=== PATIENT | female | born 1985 | race African-American/Black ===

== ENCOUNTER 2019-12-31 21:38 | Emergency (ER) | payer SELFPAY ==
[2019-12-31] MEDS ORDERED: SODIUM CHLORIDE 0.9% (FLUSH) 10 ML SYG IV PRN (21:50)
[2019-12-31] MEDS ORDERED: KETOROLAC TROMETHAMINE INJ 30 MG/ML VIAL IV ONE (21:53)
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
[2020-01-01] MEDS ORDERED: POTASSIUM CHLORIDE 20 MEQ TAB PO ONE (02:36)
[2020-01-01 03:34] VITALS: BP 118/68; TEMP 98.1; O2SAT 99
== END 2020-01-01 03:10 ==
LOC: ER 21:38
DX: S20.212A Contusion of left front wall of thorax, initial encounter (principal); S40.012A Contusion of left shoulder, initial encounter; F15.90 Other stimulant use, unspecified, uncomplicated; F12.90 Cannabis use, unspecified, uncomplicated; M54.2 Cervicalgia; R51 Headache; R10.12 Left upper quadrant pain; M25.551 Pain in right hip; M79.651 Pain in right thigh; M79.652 Pain in left thigh; V49.88XA Car occupant (driver) (passenger) injured in other specified transport accidents, initial encounter; Y92.410 Unspecified street and highway as the place of occurrence of the external cause
CPT/HCPCS: 70450; 71045; 72125; 72170; 73030; 80053; 80320; 82150; 84484; 85025; 85610; 85730; 93005; J1885